=== PATIENT | female | born 1945 | race Two or more races ===

== ENCOUNTER → 2021-09-16 | Outpatient (CLI) | payer MEDICARE | END | disposition home or self-care (01) | LOC: LABWHC1 14:03 | PROVIDERS: ATTEND Otolaryngology | DX: J30.89 Other allergic rhinitis (principal) | CPT/HCPCS: 36415 ==

== ENCOUNTER 2024-04-16 15:18 | Emergency (ER) | payer MEDICARE ==
[2024-04-16 15:32] VITALS: TEMP 97.8
--- NOTE | 2024-04-16 16:17 | ED ---
Skin/Abscess/FB HPI - General Chief complaint: Skin/Abscess/Foreign Body Stated complaint: R LEG INF Time Seen by Provider: 04/16/24 15:34 Source: patient, RN notes reviewed Mode of arrival: ambulatory Limitations: no limitations - History of Present Illness Initial comments: This is a 78-year-old female presenting with right lower extremity infection x 3 days. Patient endorses suffering a fall 7 days ago causing a laceration to right elbow and right hays. Endorses receiving sutures for both that at [facility] ED for she began experiencing worsening redness, warmth, edema and tenderness of her right hays. Endorses tetanus vaccination status being up-to-date. Denies fever, chills, chest pain, dyspnea. MD complaint: discoloration Onset/Timin -: days(s) Tetanus Up to Date: yes Location: E Context: recent antibiotic Associated symptoms: denies other symptoms Treatments Prior to Arrival: antibiotic - Related Data Previous Rx's Medication Instructions Recorded Sulfamethox-Tmp 800-160Mg [Bactrim 1 each PO Q12HR #20 tab 04/16/24 Ds] Allergies Allergy/AdvReac Type Severity Reaction Status Date / Time montelukast [From Singulair] AdvReac Unknown Verified 04/16/24 15:27 diuretics AdvReac Unknown Uncoded 04/16/24 15:27 Review of Systems ROS Statement: Those systems with pertinent positive or pertinent negative responses have been documented in the HPI. ROS Other: All systems not noted in ROS Statement are negative. Past Medical History Past Medical History: No Reported History Past Surgical History: Back Surgery, Orthopedic Surgery Past Psychological History: No Psychological Hx Reported Smoking Status: Never smoker Past Alcohol Use History: None Reported Past Drug Use History: None Reported General Exam Limitations: no limitations General appearance: alert, in no apparent distress Head exam: Present: atraumatic, normocephalic, normal inspection Eye exam: Present: normal appearance, PERRL, EOMI. Absent: scleral icterus, conjunctival injection, periorbital swelling ENT exam: Present: normal exam, mucous membranes moist Neck exam: Present: normal inspection. Absent: tenderness, meningismus, lymphadenopathy Respiratory exam: Present: normal lung sounds bilaterally. Absent: respiratory distress, wheezes, rales, rhonchi, stridor Cardiovascular Exam: Present: regular rate, normal rhythm, normal heart sounds. Absent: systolic murmur, diastolic murmur, rubs, gallop, clicks GI/Abdominal exam: Present: soft, normal bowel sounds. Absent: distended, tenderness, guarding, rebound, rigid Extremities exam: Present: full ROM, normal capillary refill, other (Positive anterior RLE skin tear over mid hays with necrosis of sutured avulsion and large surrounding confluent area of erythema, warmth and pitting edema. Sutured li near laceration of right elbow appears scabbed with bordering erythema and no purulent discharge, edema or warmth). Absent: tenderness, pedal edema, joint swelling, calf tenderness Back exam: Present: normal inspection Neurological exam: Present: alert, oriented X3, CN II-XII intact Psychiatric exam: Present: normal affect, normal mood Skin exam: Present: warm, dry, intact, normal color. Absent: rash Course Vital Signs 04/16/24 04/16/24 15:27 17:31 Temperature 97.8 F Pulse Rate 91 88 Respiratory 20 18 Rate Blood Pressure 150/70 146/76 O2 Sat by Pulse 99 98 Oximetry Procedures - Procedures Initial comment: Sutures of right elbow and chin removed by provider without incident. Necrotic skin flap avulsion of right hays removed using 11 blade scalpel without pain or bleeding. Living tissue beneath removed skin cleaned copiously with sterile water, dried and nonadhesive gauze placed over top. 4 x 4 gauze then placed followed by Kerlix roll and Jeremy wrap. Advised to leave bandage in place overnight and advised of dressing changes twice daily moving forward, allowing for healing through secondary intention. Medical Decision Making - Medical Decision Making Was pt. sent in by a medical professional or institution (Dr. PA, GLUE M[employer]ER, urgent care, hospital, or senior living...) When possible be specific @ -No Did you speak to anyone other than the patient for history (EMS, parent, family, police, friend...)? What history was obtained from this source @ -No Did you review nursing and triage notes (agree or disagree)? Why? @ -I reviewed and agree with nursing and triage notes Were old charts reviewed (outside hosp., previous admission, EMS record, old EKG, old radiological studies, urgent care reports/EKG's, senior living records)? Report findings @ -No old charts were reviewed Differential Diagnosis (chest pain, altered mental status, abdominal pain women, abdominal pain men, vaginal bleeding, weakness, fever, dyspnea, syncope, headache, dizziness, GI bleed, back pain, seizure, CVA, palpatations, mental health, musculoskeletal)? @ -Cellulitis, erysipelas, DVT, CHF, PAD, PVD, lymphedema, this is not an exhaustive list EKG interpreted by me (3pts min.). @ -Not done X-rays interpreted by me (1pt min.). @ -None done CT interpreted by me (1pt min.). @ -None done U/S interpreted by me (1pt. min.). @ -None done What testing was considered but not performed or refused? (CT, X-rays, U/S, labs)? Why? @ -None What meds were considered but not given or refused? Why? @ -None Did you discuss the management of the patient with other professionals (professionals i.e. , PA, GLUE [employer]ER, lab, RT, psych nurse, 7th grade social studies teacher, entry level civil engineer, teacher, operations officer a[employer], case reviewer)? Give summary @ -No Was smoking cessation discussed for >3mins.? @ -No Was critical care preformed (if so, how long)? @ -No Were there social determinants of health that impacted care today? How? (Homelessness, low income, unemployed, alcoholism, drug addiction, transportation, low edu. Level, literacy, decrease access to med. care, fci, rehab)? @ -No Was there de-escalation of care discussed even if they declined (Discuss DNR or withdrawal of care, Hospice)? DNR status @ -No What co-morbidities impacted this encounter? (DM, HTN, Smoking, COPD, CAD, Cancer, CVA, ARF, Chemo, Hep., AIDS, mental health diagnosis, sleep apnea, morbid obesity)? @ -None Was patient admitted / discharged? Hospital course, mention meds given and route, prescriptions, significant lab abnormalities, going to OR and other pertinent info. @ -Following suture removal, tissue debridement and dressing application, patient provided single dose of p.o. clindamycin. Bactrim DS preferred by attending physician. Bactrim DS starter pack provided to patient and Bactrim DS sent to patient's pharmacy for ongoing regimen. Patient states she has mupirocin ointment at home for application twice daily with dressing change. Wound care instructions provided to patient. Advised follow-up with PCP. Discussed patient with Dr. Urbina. Undiagnosed new problem with uncertain prognosis? @ -No Drug Therapy requiring intensive monitoring for toxicity (Heparin, Nitro, Insulin, Cardizem)? @ -No Were any procedures done? @ -Suture removal and debridement of necrotic tissue performed without incident Diagnosis/symptom? @ -Cellulitis, suture removal Acute, or Chronic, or Acute on Chronic? @ -Acute Uncomplicated (without systemic symptoms) or Complicated (systemic symptoms)? @ -Uncomplicated Side effects of treatment? @ -No Exacerbation, Progression, or Severe Exacerbation? @ -Progression Poses a threat to life or bodily function? How? (Chest pain, [place], [place], pneumonia, PE, COPD, DKA, ARF, appy, cholecystitis, CVA, Diverticulitis, Homicidal, Suicidal, threat to staff... and all critical care pts) @ -No Disposition Clinical Impression: Cellulitis, Encounter for removal of sutures Disposition: HOME SELF-CARE Condition: Good Instructions (If sedation given, give patient instructions): Cellulitis (ED), Acute Wound Care (ED) Prescriptions: Sulfamethox-Tmp 800-160Mg [Bactrim Ds] 1 each PO Q12HR #20 tab Is patient prescribed a controlled substance at d/c from ED?: No Referrals: Valentin Osman MD [Primary Care Provider] - 1-2 days Time of Disposition: 17:16
[2024-04-16] MEDS: CLINDAMYCIN 150 MG CAP PO STA (17:06)
[2024-04-16] MEDS: SULFAMETH-TMP DS STARTER PACK 2 TAB BTL PO STA (17:31)
[2024-04-16 17:33] VITALS: BP 146/76; PULSE 88; RESP 18
== END 2024-04-16 17:32 | disposition home or self-care (01) ==
LOC: EC 15:18
DX: L03.115 Cellulitis of right lower limb (principal); Z48.02 Encounter for removal of sutures; Z88.8 Allergy status to other drugs, medicaments and biological substances
CPT/HCPCS: 99282